=== PATIENT | female | born 1975 | race Caucasian/White ===

== ENCOUNTER 2023-03-24 21:21 | Emergency (ER) | payer BC, SELFPAY ==
[2023-03-24 21:22] VITALS: BP 135/89; PULSE 105; RESP 16; TEMP 36.7; O2SAT 100; BMI 33.1
--- NOTE | 2023-03-24 22:30 | PC.NURSE ---
PATIENT REQUEST INDEPENDENT LAB DRAW. LEFT AC CLEANSED WITH BETADINE 4 TUBES OF BLOOD OBTAINED AND SENT TO LAB.
[2023-03-24 22:52] VITALS: BP 128/72; PULSE 94; RESP 16; TEMP 36.7; O2SAT 100
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
[2023-03-29 16:01] LABS: Chlordiazepoxide <0.1 ug/mL
[2023-03-29 17:05] LABS: Acetone <.010 g/dL (0.000-0.010); Butalbital <1 ug/mL (1-10); Diazepam <0.1 ug/mL (0.1-0.9); Ethanol <.010 g/dL (0.000-0.010); Isopropanol <.010 g/dL (0.000-0.010); Pentobarbital <1 ug/mL (1-5)
== END 2023-03-24 22:53 ==
PROVIDERS: Emergency Provider Emergency Medicine; PCP Family Medicine
DX: F19.920 Other psychoactive substance use, unspecified with intoxication, uncomplicated (principal)
CPT/HCPCS: 80306; 96361; 96374; 96375; 99284

== ENCOUNTER 2023-08-16 20:33 | Outpatient (CLI) | payer BC, SELFPAY ==
[2023-08-16 18:27] LABS: Adenovirus,PCR Not Detected (NotDetected); Coronavirus 229E Not Detected (NotDetected); Coronavirus NL63 Not Detected (NotDetected); Coronavirus OC43 Not Detected (NotDetected); Coronovirus HKU1,PCR Not Detected (NotDetected); Human Metapneumovirus Not Detected (NotDetected); Influenza A, PCR Not Detected (NotDetected); Influenza AH1, 2009 Not Detected (NotDetected); Influenza AH1, PCR Not Detected (NotDetected); Influenza AH3,PCR Not Detected (NotDetected); Influenza B, PCR Not Detected (NotDetected); Parainfluenza 1, PCR Not Detected (NotDetected); Parainfluenza 2, PCR Not Detected (NotDetected); Parainfluenza 3, PCR Not Detected (NotDetected); Parainfluenza 4, PCR Not Detected (NotDetected); Respiratory Syncytial Virus Not Detected (NotDetected); Rhinovirus/Enterovirus Not Detected (NotDetected)
[2023-08-16 19:20] LABS: Basophils % 0.9 % (0.1-2.0); Hematocrit 40.1 % (37.0-47.0); Hemoglobin 13.1 g/dL (12.2-16.2); Lymphocytes # 1.8 K/mm3 (0.7-4.5); Lymphocytes % 41.8 % (10-50); Mean Corpuscular HGB Conc 32.8 g/dL (31.8-35.4); Mean Corpuscular Hemoglobin 31.7 pg (27.0-31.2); Mean Corpuscular Volume 96.5 fl (81-99); Mean Platelet Volume 9.1 fl (7.4-10.4); Monocytes # 0.5 K/mm3 (0.1-1.0); Monocytes % 11.4 % (1.7-9.3); Neutrophils # 1.9 K/mm3 (1.8-7.8); Neutrophils % 44.9 % (37.0-80.0); Platelet Count 229 K/mm3 (142-424); Red Blood Count 4.15 M/mm3 (4.20-5.40); Red Cell Distribution Width 13.5 % (11.5-17.5); White Blood Count 4.2 K/mm3 (4.8-10.8)
[2023-08-17 01:47] LABS: Coronavirus 19, PCR Detected (NotDetected)
== END 2023-08-16 23:59 ==
LOC: LAB.DROPOF 20:33
PROVIDERS: Nurse Practitioner; PCP Student in an Organized Health Care Education/Training Program; Visit Provider Student in an Organized Health Care Education/Training Program
DX: J06.9 Acute upper respiratory infection, unspecified (principal); R05.8 Other specified cough; U07.1 COVID-19
CPT/HCPCS: 85025; 87581; 87632; 87635; 87798